=== PATIENT | female | born 1985 | race African-American/Black ===

== ENCOUNTER 2021-09-17 00:24 | Emergency (ER) | payer OTHER ==
[~2021-09-17] VITALS: Ht 152.4 cm; Wt 94.8 kg
[2021-09-17] MEDS ORDERED: CEPHALEXIN500 MG PO (00:47)
[2021-09-17 00:52] VITALS: BP 108/56
== END 2021-09-17 00:52 | disposition home or self-care (01) ==
LOC: FSED 00:45
DX: S61.304A Unspecified open wound of right ring finger with damage to nail, initial encounter (principal); W23.1XXA Caught, crushed, jammed, or pinched between stationary objects, initial encounter; Y92.512 Supermarket, store or market as the place of occurrence of the external cause; F17.210 Nicotine dependence, cigarettes, uncomplicated
CPT/HCPCS: 99282